=== PATIENT | female | born 2000 | race Caucasian/White ===

== ENCOUNTER 2021-03-08 20:27 | Emergency (ER) | payer MEDICAID ==
[2021-03-08] MEDS ORDERED: Sodium Chloride 0.9% 10 ML Syringe FLUSH PRN (20:51)
--- NOTE | 2021-03-08 20:51 | EDM.PDOC ---
ED HPI GENERAL MEDICAL PROBLEM - General Stated Complaint: BLOOD CLOTS, CHEST PAINS Time Seen by Provider: 03/08/21 20:50 Source of Information: Reports: Patient History Limitations: Reports: No Limitations - History of Present Illness INITIAL COMMENTS - FREE TEXT/NARRATIVE: 20-year-old female with recent history of DVTs and bilateral pulmonary emboli and apparently some other venous problems in her legs that has required angioplasty with stent in her veins 2 who presents to the emergency department reporting intermittent pains in her central chest that are also associated with feelings of shortness of breath. These pains at their worst are a 9-10/10 and have lasted for 10-20 minutes at a time. They are pressure type pain and very sharp. They are worse with breathing and with palpation. They seem to come on mostly at night when she is trying to rest. She had several episodes of the pain today. She was seen 2 days ago by a nurse practitioner at an urgent care at [facility] in [place] and the nurse practitioner called her today to see how she was doing and with the patient still having episodes of the chest pain, she recommended that the patient come to the local emergency department for eval uation. The patient does report that on Thursday her INR was 3.0. She is chronically anticoagulated on Coumadin she has had no hemoptysis. She has had a mild cough and the shortness of breath with these episodes of chest pain. She currently has no chest pain. She would rate her pain as a 0/10 but she does still have some pain that is reproducible with palpation. She has had no nausea or vomiting. No fevers or chills. She has been eating and drinking normally. She reports that she has been taking her medications as prescribed. There are no other associated signs or symptoms. There are no other modifying factors. 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.) - Related Data Allergies Allergy/AdvReac Type Severity Reaction Status Date / Time erythromycin base Allergy Severe Other Verified 03/08/21 20:51 morphine Allergy Intermediate Hives Verified 03/08/21 20:51 Home Meds: Home Meds Ferrous Sulfate 1 tab PO BID 03/08/21 [History] Warfarin [Coumadin] 5 mg PO DAILY 03/08/21 [History] Past Medical History Cardiovascular History: Reports: Blood Clots/VTE/DVT Respiratory History: Reports: PE Hematologic History: Reports: Anemia, Anticoagulation Therapy (Chronically anticoagulated with Coumadin.) - Past Surgical History HEENT Surgical History: Reports: Oral Surgery (Nenzel teeth extraction) Cardiovascular Surgical History: Reports: Percutaneous Transluminal Angioplasty (Of the right leg veins with stent placed according to the patient.) Dermatological Surgical History: Reports: Other (See Below) (Bilateral breast reduction) Social & Family History - Tobacco Use Tobacco Use Status *Q: Current Every Day Tobacco User - Alcohol Use Alcohol Use History: Yes Alcohol Use Frequency: Socially - Living Situation & Occupation Living situation: Reports: with Significant Other Occupation: Unemployed ED ROS GENERAL - Review of Systems Review Of Systems: See Below Constitutional: Denies: Fever, Chills HEENT: Denies: Sinus Problem, Throat Pain Respiratory: Reports: Shortness of Breath (With these episodes), Pleuritic Chest Pain (With these episodes.), Cough Cardiovascular: Reports: Chest Pain. Denies: Dyspnea on Exertion Endocrine: Denies: Fatigue, Polydypsia GI/Abdominal: Denies: Diarrhea, Nausea, Vomiting : Denies: Dysuria, Hematuria Musculoskeletal: Denies: Arm Pain, Back Pain Skin: Denies: Diaphoresis, Rash Neurological: Denies: Dizziness, Headache Psychiatric: Reports: Anxiety Hematologic/Lymphatic: Reports: Anemia, Easy Bruising (Chronically anticoagulated on Coumadin.) ED EXAM, GENERAL - Physical Exam Exam: See Below Exam Limited By: No Limitations General Appearance: Alert, WD/WN, No Apparent Distress Eye Exam: Bilateral Eye: EOMI, Normal Inspection (Sclera are anicteric) Ears: Normal External Exam, Hearing Grossly Normal Ear Exam: Bilateral Ear: Auricle Normal Nose: Normal Inspection, Normal Mucosa, No Blood Throat/Mouth: Normal Inspection, Normal Lips, Normal Oropharynx, Normal Voice, No Airway Compromise Head: Atraumatic, Normocephalic Neck: Normal Inspection, Supple, Non-Tender, Full Range of Motion Respiratory/Chest: No Respiratory Distress, Lungs Clear, Normal Breath Sounds, No Accessory Muscle Use, Other (Tender to palpation over the central chest.) Cardiovascular: Normal Peripheral Pulses, Regular Rate, Rhythm, No Gallop, No Murmur Peripheral Pulses: 2+: Radial (L), Radial (R), Dorsalis Pedis (L), Dorsalis Pedis (R) GI/Abdominal: Normal Bowel Sounds, Soft, Non-Tender, No Mass Back Exam: Normal Inspection, Full Range of Motion Extremities: Normal Inspection, Normal Range of Motion, Non-Tender, No Pedal Edema, Normal Capillary Refill, Other (No calf tenderness.) Neurological: Alert, Oriented, CN II-XII Intact, Normal Cognition, No Motor/Sensory Deficits Psychiatric: Normal Affect, Normal Mood Skin Exam: Warm, Dry, Intact, Normal Color, No Rash #1 Interpretation EKG Date: 03/08/21 Time: 20:36 Rhythm: NSR Rate (Beats/Min): 87 [place]: Normal P-Wave: Present QRS: Normal ST-T: Other (Nonspecific ST-T change.) QT: Normal Comparison: NA - No Prior EKG Course - Vital Signs Last Recorded V/S: Last Vital Signs Temp 36.6 C 03/08/21 20:35 Pulse 95 03/08/21 20:35 Resp 18 03/08/21 20:35 BP 125/77 03/08/21 20:35 Pulse Ox 99 03/08/21 20:35 - Orders/Labs/Meds Orders: Active Orders 24 hr Category Date Time Status Ang Chest [CT] Stat Exams 03/08/21 22:05 Ordered Chest 1V Frontal [CR] Stat Exams 03/08/21 20:51 Taken Peripheral IV Insertion Adult [OM.PC] Routine Oth 03/08/21 20:51 Ordered EKG 12 Lead [EK] Routine Ther 03/08/21 20:51 Ordered Labs: Laboratory Tests 03/08/21 03/08/21 03/08/21 Range/Units 21:00 21:00 21:00 WBC 6.5 (3.0-10.3) x10-3/uL RBC 4.23 (3.60-5.20) x10(6)uL Hgb 10.2 L (11.4-15.5) g/dL Hct 32.3 L (34.2-48.2) % MCV 76.3 L (76.7-100.5) fL MCH 24.2 (23.9-33.9) pg MCHC 31.7 L (31.9-34.8) g/dL RDW 18.5 H (12.3-16.5) % Plt Count 750 H (151-488) x10(3)uL MPV 7.0 L (7.1-12.4) fL Neut % (Auto) 62.1 (30.8-76.2) % Lymph % (Auto) 29.7 (18.4-52.1) % [place] % (Auto) 5.7 (4.4-15.7) % Eos % (Auto) 1.9 (0.6-8.1) % Baso % (Auto) 0.6 (0.2-1.5) % Neut # (Auto) 4.0 (1.5-6.3) x10-3/uL Lymph # (Auto) 1.9 (1.0-4.4) x10-3/uL [place] # (Auto) 0.4 (0.3-1.0) x10-3/uL Eos # (Auto) 0.1 (0.0-0.8) x10-3/uL Baso # (Auto) 0.0 (0.0-0.1) x10-3/uL PT 18.5 H (9.0-11.1) sec INR 1.78 H (1.00-1.24) POC VBG pH (7.32-7.43) pH Units POC VBG pCO2 (41-51) mmHg POC VBG HCO3 (21-29) mmol/L VBG Base Excess (-2-3) mmol/L O2 Delivery Device Sodium 144 (135-145) mmol/L Potassium 4.1 (3.5-5.3) mmol/L Chloride 104 (100-110) mmol/L Carbon Dioxide 28 (21-32) mmol/L BUN 15 (7-18) mg/dL Creatinine 0.9 (0.55-1.02) mg/dL Est Cr Clr Drug Dosing TNP Estimated GFR (MDRD) > 60 (>60) BUN/Creatinine Ratio 16.7 (9-20) Glucose 90 (80-116) mg/dL Calcium 8.9 (8.6-10.2) mg/dL Magnesium 2.1 (1.8-2.5) mg/dL Total Bilirubin 0.4 (0.1-1.3) mg/dL AST 16 (5-25) IU/L ALT 30 (12-36) U/L Alkaline Phosphatase 89 (56-112) IU/L Troponin I (4.0-60.3) pg/mL Total Protein 7.6 (6.0-8.0) g/dL Albumin 3.3 L (3.5-5.2) g/dL Globulin 4.3 g/dL Albumin/Globulin Ratio 0.8 03/08/21 03/08/21 Range/Units 21:00 21:00 WBC (3.0-10.3) x10-3/uL RBC (3.60-5.20) x10(6)uL Hgb (11.4-15.5) g/dL Hct (34.2-48.2) % MCV (76.7-100.5) fL MCH (23.9-33.9) pg MCHC (31.9-34.8) g/dL RDW (12.3-16.5) % Plt Count (151-488) x10(3)uL MPV (7.1-12.4) fL Neut % (Auto) (30.8-76.2) % Lymph % (Auto) (18.4-52.1) % [place] % (Auto) (4.4-15.7) % Eos % (Auto) (0.6-8.1) % Baso % (Auto) (0.2-1.5) % Neut # (Auto) (1.5-6.3) x10-3/uL Lymph # (Auto) (1.0-4.4) x10-3/uL [place] # (Auto) (0.3-1.0) x10-3/uL Eos # (Auto) (0.0-0.8) x10-3/uL Baso # (Auto) (0.0-0.1) x10-3/uL PT (9.0-11.1) sec INR (1.00-1.24) POC VBG pH 7.39 (7.32-7.43) pH Units POC VBG pCO2 42 (41-51) mmHg POC VBG HCO3 26 (21-29) mmol/L VBG Base Excess 1 (-2-3) mmol/L O2 Delivery Device Room air Sodium (135-145) mmol/L Potassium (3.5-5.3) mmol/L Chloride (100-110) mmol/L Carbon Dioxide (21-32) mmol/L BUN (7-18) mg/dL Creatinine (0.55-1.02) mg/dL Est Cr Clr Drug Dosing Estimated GFR (MDRD) (>60) BUN/Creatinine Ratio (9-20) Glucose (80-116) mg/dL Calcium (8.6-10.2) mg/dL Magnesium (1.8-2.5) mg/dL Total Bilirubin (0.1-1.3) mg/dL AST (5-25) IU/L ALT (12-36) U/L Alkaline Phosphatase (56-112) IU/L Troponin I < 4.0 L (4.0-60.3) pg/mL Total Protein (6.0-8.0) g/dL Albumin (3.5-5.2) g/dL Globulin g/dL Albumin/Globulin Ratio Meds: Medications Discontinued Medications Generic Name Dose Route Start Last Admin Trade Name Freq PRN Reason Stop Dose Admin Iopamidol 85 ml 03/08/21 22:29 03/08/21 23:22 Iopamidol 755 Mg/Ml 100 Ml Bottle IV 03/08/21 22:30 Not Given . DIRECTED ONE Sodium Chloride 10 ml 03/08/21 20:51 Sodium Chloride 0.9% 10 Ml Syringe FLUSH ASDIRECTED PRN Keep Vein Open - Radiology Interpretation Free Text/Narrative:: Portable chest x-ray showed no acute disease. - Re-Assessments/Exams Free Text/Narrative Re-Assessment/Exam: 03/08/21 22:00: Patient with INR 1.78 (subtherapeutic) and I did get the patient's x-ray studies from [facility] and on 02/14/[address] of her chest which showed bilateral segmental and subsegmental pulmonary artery emboli without infarction or right heart strain. With the patient having ongoing symptoms and with her being subtherapeutic on her INR, I feel that a CTA of her chest is warranted sure that she has not had worsening of her pulmonary emboli. I had previously discussed this with the patient and she was in agreement with the plan for CTA of her chest. 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 Patient has basically stated that she will not allow any further IV starts and that she wishes to be discharged and that she would want to go to [facility] in [place] with this point. I explained to the patient that with her subtherapeutic INR, she is at risk for blood clots and I feel that the CTA of her chest is appropriate to be done. I did definitely recommend that she follow through with her plans to go to [facility] in [place] for evaluation. I have recommended that she stay and allow the SENIOR UI UX DEVELOPER to attempt another IV she is unwilling to do this and wishes to leave as stated above. She understands the risk associated with this. Departure - Departure Time of Disposition: 23:12 Disposition: Home, Self-Care 01 Condition: Good (Unchanged.) Clinical Impression: Chest pain Qualifiers: Chest pain type: unspecified Qualified Code(s): R07.9 - Chest pain, unspecified Pulmonary emboli Qualifiers: Pulmonary embolism type: unspecified Chronicity: acute Acute cor pulmonale presence: unspecified Qualified Code(s): I26.99 - Other pulmonary embolism without acute cor pulmonale - Discharge Information Referrals: PCP,None [Primary Care Provider] - Forms: ED Department Discharge Additional Instructions: As we discussed, your INR his below the therapeutic range. It was 1.78. This means that your blood is not thin enough and you could perform further blood clots and this could be causing your chest pain and shortness of breath. Your blood tests were all reassuringly normal or unchanged from previous. You still have an anemia. You do need to have other CAT scan performed to fully evaluate the arteries in your lungs for blood clots. And you also may need additional medications to thin your blood as well. I strongly recommend that you keep your plans to go to [facility] in [place] tonight for this evaluation. Sepsis Event Note (ED) - Focused Exam Vital Signs: Vital Signs Temp Pulse Resp BP Pulse Ox 03/08/21 20:35 36.6 C 95 18 125/77 99 - My Orders Last 24 Hours: My Active Orders 03/08/21 20:51 Chest 1V Frontal [CR] Stat Peripheral IV Insertion Adult [OM.PC] Routine EKG 12 Lead [EK] Routine 03/08/21 22:05 Ang Chest [CT] Stat - Assessment/Plan Last 24 Hours: My Active Orders 03/08/21 20:51 Chest 1V Frontal [CR] Stat Peripheral IV Insertion Adult [OM.PC] Routine EKG 12 Lead [EK] Routine 03/08/21 22:05 Ang Chest [CT] Stat
[2021-03-08 21:27] LABS: BASE EXCESS VENOUS,POC 1 mmol/L (-2-3); HCO3 VENOUS,POC 26 mmol/L (21-29); PCO2 VENOUS,POC 42 mmHg (41-51); PH VENOUS,POC 7.39 pH Units (7.32-7.43)
[2021-03-08] MEDS ORDERED: Iopamidol 755 Mg/ML 100 ML Bottle IV ONE (22:29)
--- NOTE | 2021-03-11 12:13 | CR ---
INDICATION: Chest pain. CHEST ONE VIEW: AP portable upright view of the chest 03/08/21 revealed the heart and mediastinum and bony thorax to be unremarkable. Overlying EKG leads are noted. A definite active infiltrate or effusion was not identified. IMPRESSION: No active disease. MTDD
== END 2021-03-08 23:21 | disposition home or self-care (01) ==
LOC: FB.ED 20:27
DX: I26.99 Other pulmonary embolism without acute cor pulmonale (principal); Z72.0 Tobacco use; Z79.01 Long term (current) use of anticoagulants; Z88.6 Allergy status to analgesic agent; Z88.1 Allergy status to other antibiotic agents
CPT/HCPCS: 36415; 71045; 80053; 83735; 84484; 85025; 85610; 93005; 99285-25